=== PATIENT | male | born 1980 | race Caucasian/White ===

== ENCOUNTER → 2019-03-17 | Outpatient (CLI) | payer OTHER ==
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
== END | disposition home or self-care (01) ==
LOC: RADXRMAIN 09:24
PROVIDERS: ATTEND Family Medicine
DX: M54.2 Cervicalgia (principal)
CPT/HCPCS: 72050

== ENCOUNTER → 2019-03-25 | Outpatient (CLI) | payer OTHER ==
--- NOTE | 2019-03-25 08:16 | US ---
EXAMINATION TYPE: US kidneys/renal and bladder DATE OF EXAM: 03/25/2019 COMPARISON: NONE CLINICAL HISTORY: R10.9 Left flank pain. Left flank pain for 1 year EXAM MEASUREMENTS: Right Kidney: 11.5 x 4.3 x 3.9 cm Left Kidney: 11.0 x 5.6 x 4.9cm Right Kidney: no evidence of hydronephrosis Left Kidney: no evidence of hydronephrosis Bladder: appears wnl Bilateral Jets seen: yes There is no evidence for hydronephrosis at this point in time. No nephrolithiasis is seen. No brandon s are identified. The urinary bladder is anechoic. Bilateral ureteral jets are seen. IMPRESSION: Unremarkable renal ultrasound. No hydronephrosis or nephrolithiasis seen.
== END | disposition home or self-care (01) ==
LOC: RADUSWWP 07:07
PROVIDERS: ATTEND Family Medicine
DX: R10.9 Unspecified abdominal pain (principal)
CPT/HCPCS: 76770

== ENCOUNTER → 2019-04-25 | Outpatient (CLI) | payer OTHER ==
[2019-04-25 07:54] LABS: HCT 44.9 % (39.0-53.0); HGB 15.1 gm/dL (13.0-17.5); MCH 31.4 pg (25.0-35.0); MCHC 33.7 g/dL (31.0-37.0); MCV 93.1 fL (80.0-100.0); Mean Platelet Volume 7.6; Platelet Count 301 k/uL (150-450); RBC 4.82 m/uL (4.30-5.90); RDW 13.1 % (11.5-15.5); WBC 12.8 k/uL (3.8-10.6)
[2019-04-25 09:05] LABS: Erythrocyte Sedimentation Rate 2 mm/hr (0-15)
[2019-04-25 11:49] LABS: ALT 21 U/L (10-49); AST 18 U/L (14-35); African American GFR (CKD) 97.5 (60.0-200.0); Albumin/Globulin Ratio 2.45 (1.60-3.17); Alkaline Phosphatase 71 U/L (41-126); BUN/Creat Ratio 11.82 Ratio (12.00-20.00); C Reactive Protein <0.4 mg/dL (0.0-0.8); Calcium 10.2 mg/dL (8.7-10.3); Carbon Dioxide 27.4 mmol/L (21.6-31.8); Chloride 104 mmol/L (96-109); Glucose 117 mg/dL (70-110); Non-African American GFR(CKD) 84.1 (60.0-200.0); Potassium 5.1 mmol/L (3.5-5.5); Sodium 139 mmol/L (135-145); Total Bilirubin 0.6 mg/dL (0.3-1.2); Total Protein 6.9 g/dL (6.2-8.2)
[2019-04-25 12:43] LABS: Gliadin AB IgA, Deaminated NEGATIVE (NEGATIVE); Gliadin AB IgA, Unit <0.2 U/mL; Gliadin AB IgG, Deaminated NEGATIVE (NEGATIVE)
== END ==
LOC: LABWHC1 07:09
PROVIDERS: ATTEND Nurse Practitioner
DX: K52.9 Noninfective gastroenteritis and colitis, unspecified (principal)
CPT/HCPCS: 36415; 80053; 83516; 83630; 83993; 85027; 85652; 86140; 87045; 87046; 87324; 87328; 87329

== ENCOUNTER → 2021-03-08 | Outpatient (CLI) | payer OTHER ==
--- NOTE | 2021-03-08 16:10 | MR ---
EXAMINATION TYPE: MR tspine/lspine wo con DATE OF EXAM: 03/08/2021 COMPARISON: MRI 07/12/2012 lumbar spine HISTORY: Mid and lower back pain. TECHNIQUE: Multiplanar, multisequence imaging of the thoracic and lumbar spine is performed without I V contrast. FINDINGS: Thoracic spine MRI: Thoracic vertebral bodies show preserved height, there is a gentle spinal curvature, multilevel spond ylosis is present. Disc spaces are maintained. Thoracic cord signal is normal. There is no significan t spinal stenosis or foraminal encroachment. At T7-8 shows a small posterior disc bulge as does the T 11-12. Lung bases show no effusion. IMPRESSION: Slight spinal curvature, mild degenerative disc disease. Lumbar spine MRI: Sagittal images of the lumbar spine show vertebral body heights and alignment to appear satisfactory. The intervertebral discs demonstrate normal heights and hydration exception of L5-S1 with some loss of disc height and signal, posterior aspect of the disks show some increased signal on T2 weighted se quences suggesting an annular tear, findings similar to prior exam. The conus medullaris is normal i n position and signal. The bone marrow signal intensity is within normal limits, some minimal endpla te discogenic marrow signal change present superior endplate L4 anteriorly, there is mild spondylosis . There is no spinal canal stenosis, neural foraminal narrowing, or evidence of nerve root compromise. L5-S1 shows a small posterior disc bulge contacting the anterior thecal sac and possibly the proximal S1 nerve roots, axial image #3. L4-5 shows some facet arthropathy with hypertrophy of the ligamentum flavum. The left SI joint shows a small focus of fluid signal, axial image 2 which may be related to some deg enerative change. IMPRESSION: Mild degenerative disc disease as described, facet arthropathy.
== END | disposition home or self-care (01) ==
LOC: RADMRIMAIN 14:35
PROVIDERS: ATTEND Orthopaedic Surgery
DX: M51.34 Other intervertebral disc degeneration, thoracic region (principal); M47.816 Spondylosis without myelopathy or radiculopathy, lumbar region
CPT/HCPCS: 72146; 72148

== ENCOUNTER → 2021-03-20 | Outpatient (CLI) | payer OTHER ==
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
== END | disposition home or self-care (01) ==
LOC: RADMRIMAIN 19:12
PROVIDERS: ATTEND Orthopaedic Surgery
DX: M25.561 Pain in right knee (principal)

== ENCOUNTER → 2021-04-29 | Outpatient (CLI) | payer OTHER ==
[2021-04-29 19:44] LABS: Basophils # (A) 0.11 X 10*3/uL (0.00-0.10); Basophils % (A) 0.7 %; Eosinophils # (A) 0.55 X 10*3/uL (0.04-0.35); Eosinophils % (A) 3.7 %; HGB 14.1 g/dL (13.0-17.0); Lymphocytes # (A) 3.23 X 10*3/uL (0.90-5.00); Lymphocytes % (A) 21.8 %; MCH 31.9 pg (27.0-32.0); MCHC 33.6 g/dL (32.0-37.0); Mean Platelet Volume 10.5 fL (9.5-12.2); Monocytes # (A) 0.97 X 10*3/uL (0.20-1.00); Monocytes % (A) 6.5 %; Neutrophils # (A) 9.93 X 10*3/uL (1.80-7.70); Neutrophils % (A) 66.9 %; Platelet Count 267 X 10*3/uL (140-440); RBC 4.42 X 10*6/uL (4.40-5.60); RDW 13.6 % (11.5-14.5); WBC 14.85 X 10*3/uL (4.50-10.00)
[2021-04-29 21:44] LABS: Anion Gap 13.2 mmol/L (10.00-18.00); Carbon Dioxide 21.6 mmol/L (20.0-27.5); Potassium 5.1 mmol/L (3.5-5.5)
== END | disposition home or self-care (01) ==
LOC: LABWHC1 10:43
PROVIDERS: ATTEND Orthopaedic Surgery
DX: Z01.812 Encounter for preprocedural laboratory examination (principal); M23.91 Unspecified internal derangement of right knee
CPT/HCPCS: 36415; 80051; 85025

== ENCOUNTER 2021-05-23 08:59 | Day surgery (SDC) | payer OTHER ==
[2021-05-16 10:35] VITALS: BMI 28.2
--- NOTE | 2021-05-22 14:15 | HP ---
HISTORY AND PHYSICAL DATE OF SURGERY: 05/23/2021 Arron Pike is a 40-year-old gentleman seen with progressive right knee pain. We discussed options with him. He elected to proceed with right knee arthroscopy. Consent was obtained. PAST MEDICAL HISTORY: Hypertension, hyperlipidemia, hypothyroidism. PAST SURGICAL HISTORY: Hand surgery. DAILY MEDICATIONS: Atorvastatin, levothyroxine, omeprazole, lisinopril. ALLERGIES: DARVOCET, DEMEROL AND PENICILLIN. SOCIAL HISTORY: He smokes half pack of cigarettes daily. PHYSICAL EVALUATION OF THE RIGHT KNEE: His range of motion is zero to 130. There is a mild effusion. Tenderness along the medial joint line. Positive medial Sophia's. Ligaments are stable. Hip rotation is without pain. His distal neurovascular exam is intact. Right knee radiographs failed to reveal any significant osseous abnormality. MRI right knee revealed a medial meniscal tear and intraarticular effusion. IMPRESSION: 1. Internal derangement of right knee with medial meniscal tear. 2. Hypertension. 3. Hyperlipidemia. 4. Hypothyroidism. PLAN: Right knee arthroscopy with partial meniscectomy and debridement. MMODL / IJN: [id number] /
[~2021-05-23 08:59] MED LIST: DEXAMETHASONE SOD PHOSPHATE 4 MG/ML 1 ML VIAL IV ONE; HYDROmorphone 0.5 MG/0.5 ML SYRINGE IVP PRN; KETOROLAC 15 MG/ML 1 ML VIAL IVP SCH; LACTATED RINGERS 1,000 ML IV SCH; LIDOCAINE 1% (10MG/ML) FOR IV START INTRADERMA PRN; METOCLOPRAMIDE 5 MG/ML 2 ML VIAL IVP PRN; ONDANSETRON 4 MG/2 ML VIAL IVP ONE; VANCOMYCIN 1,500 MG in SODIUM CHLORIDE 0.9% 250 ML IVPB PRN
[2021-05-23] MEDS ORDERED: BUPIVACAINE (PF) 0.25% 30 ML VIAL INTRAARTIC ONE ×2 (10:59→11:33)
[2021-05-23] MEDS ORDERED: PROPOFOL 10 MG/ML 20 ML VIAL IV ONE (11:00)
[2021-05-23] MEDS ORDERED: HYDROmorphone (PF) 1 MG/ML ONE (11:00)
[2021-05-23] MEDS ORDERED: SUCCINYLCHOLINE CHLORIDE 100 MG/5 ML SYR IV ONE (11:00)
[2021-05-23] MEDS ORDERED: fentaNYL (PF) 50 MCG/ML 2 ML AMP ONE (11:00)
[2021-05-23] MEDS ORDERED: MIDAZOLAM 2 MG/2 ML VIAL ONE (11:00)
--- NOTE | 2021-05-23 11:46 | P.OP ---
Date of Procedure: 05/23/21 Preoperative Diagnosis: Internal derangement right knee Postoperative Diagnosis: 1. Tear lateral meniscus right knee 2. Reactive synovitis medial, lateral and suprapatellar compartments right knee Procedure(s) Performed: 1. Arthroscopic partial lateral meniscectomy right knee 2. Arthroscopic partial synovectomy medial, lateral and suprapatellar compartments right knee Anesthesia: ALEXIAA, local Surgeon: Walt Rodas Estimated Blood Loss (ml): 7 Pathology: none sent Condition: stable Disposition: PACU Indications for Procedure: 40-year-old patient seen with progressive right knee pain. After having treatment options discussed, he elected to proceed with arthroscopy. Operative Findings: See description of procedure Description of Procedure: Patient was taken to the operative suite. Patient underwent a general a nesthetic by the department of anesthesia. Patient was given preoperative antibiotics. The right lower extremity was placed in a well-padded arthroscopic leg booker. The right leg was prepped and draped in the normal sterile orthopedic fashion. A lateral parapatellar and suprapatellar incision was made. Trochars were inserted. Arthroscopy was initiated. Suprapatellar pouch revealed diffuse thick reactive synovitis. The patellofemoral joint appeared to articulate congruently. There was no significant chondromalacia present. The scope was guided into the medial gutter. No loose body or plica was identified. The scope was then guided into the medial compartment. A medial parapatellar incision was made. Trocar inserted followed by probe. The medial meniscus was probed and it was found to be stable. There was no chondromalacia present. There was some thick reactive synovitis anteriorly. I introduced a motorized shaver and performed a partial synovectomy. The shaver was removed. There appeared to be good decompression reactive synovitis. Scope and probe were then guided into the intercondylar notch. Cruciates were identified, probed and found to be stable. The scope and probe were then guided into lateral compartment. There was a radial tear posterior horn lateral meniscus. There was no chondromalacia present. There was some thick reactive synovitis anterior ly. I performed a partial lateral meniscectomy getting down to stable meniscal tissue. I performed a partial synovectomy decompressing the thick reactive synovitis anteriorly. Residual meniscus was probed and found to be stable. There was good decompression of synovitis. The scope was in guided back into the suprapatellar compartment. I introduced a motorized shaver into the suprapatellar compartment. I debrided some piecemeal fragments of meniscus that I encountered. I performed a partial synovectomy. The shaver was now removed. There was good decompression of synovitis. I took one more look on the entire knee, no residual debris. Instruments were now removed from the joint. The joint was infiltrated with .25% Marcaine. Steri-Strips were applied to the portal sites. Sterile dressings were applied. The patient was placed into a LUCIANO hose. No tourniquet was utilized. The patient was awakened, transferred to a bed and taken to recovery stable satisfactory condition.
[2021-05-23 11:51] VITALS: TEMP 96.9
[2021-05-23] MEDS ORDERED: KETOROLAC 15 MG/ML 1 ML VIAL IVP ONE (11:53)
[2021-05-23 12:31] VITALS: RESP 16
[2021-05-23 12:53] VITALS: BP 118/78; PULSE 76
== END 2021-05-23 12:58 | disposition home or self-care (01) ==
LOC: OR 08:59
PROVIDERS: ATTEND Orthopaedic Surgery
DX: S83.281A Other tear of lateral meniscus, current injury, right knee, initial encounter (principal); I10 Essential (primary) hypertension; E78.5 Hyperlipidemia, unspecified; E03.9 Hypothyroidism, unspecified
CPT/HCPCS: 29881; 29876; 84132; J2250; J1100; J2765; J0690; J2405; J3010; J1170; J1885; J0330; J2704

== ENCOUNTER → 2021-10-16 | Outpatient (CLI) | payer OTHER ==
--- NOTE | 2021-10-16 08:35 | MR ---
EXAMINATION TYPE: MR brain wo con DATE OF EXAM: 10/16/2021 7:06 AM COMPARISON: NONE HISTORY: Headache Multiplanar and multispin-echo imaging of the brain was performed . The ventricles, basal cisterns and sulci overlying the cerebral convexities are within normal limits. There is no evidence for midline shift or mass effect. Acute intracranial hemorrhage or extra-axial collection is not evident. The brain parenchyma reveals no abnormal increased signal. No acute edema is identified. The paranasal sinuses and mastoid air cells are well-aerated. IMPRESSION: Unremarkable MRI of the brain.
== END | disposition home or self-care (01) ==
LOC: RADMRIMAIN 06:21
PROVIDERS: ATTEND Family Medicine
DX: R51.9 Headache, unspecified (principal)
CPT/HCPCS: 70551

== ENCOUNTER → 2021-12-05 | Outpatient (CLI) | payer OTHER ==
[2021-12-05 09:26] VITALS: BP 124/86; PULSE 80; RESP 18; TEMP 98.5
--- NOTE | 2021-12-05 14:32 | P.PAINPG ---
Objective - Vital Signs Vital signs: Vital Signs Temp 98.5 F 12/05/21 09:17 Pulse 80 12/05/21 09:17 Resp 18 12/05/21 09:17 BP 124/86 12/05/21 09:17 Pulse Ox 96 12/05/21 09:17 FiO2 Intake & Output 12/04/21 12/05/21 12/05/21 18:59 06:59 18:59 Weight 101.151 kg PQRS Measure Charge Sheet Mode of Arrival: Ambulatory Comment: HISTORY OF PRESENT ILLNESS: 41 yr old male as a referral from Dr. Stark presents today with severe and chronic AMARAL secondary to L occipital neuralgia for evaluation. Pt states his pain level is currently at 1/10 in intensity but escalates as high as 10/10 with provocation such as hyperextension, stress or loud noises. States pain is intermittent, sharp and burning in character at the base of the neck with radiation towards the L eyebrow. Pain is alleviated with medications (Aleve OTC), laying supine and rest. PMH: HTN, COPD/ Asthma, IBS, GERD PSH: R ACL Repair (2021), R Hand Surgery x 5, Cerebral Hematoma Evacuation (1999) SH: 45 pack/ yr tobacco user, +Cannabis, No ETOH use. . FH: Mo- CAD/DM/Fibromyalgia. Fa-Cerebral Tumor/ at age 71 All: See list Meds: See list REVIEW OF ORGAN SYSTEMS: CONSTITUTIONAL: No fevers or chills. No recent weight loss. NEUROLOGICAL: + numbness and tingling along the distal extremities. No seizure disorders or headaches. MUSCULOSKELETAL: + pain PSYCHIATRIC: Denies current depression or suicidal thoughts. Physical Examinations : Constitutional : Cooperative , not in acute distress . Neurologic : Cranial nerve II to XII intact. No focal neurological deficits. Psychiatric : alert & oriented x 3. Matching mood & appropriate affect. Judgment & insight intact. Musculoskeletal : Cervical Spine +L GRACIE TTP Motor strength in the deltoid and biceps: Normal right side. Normal Left side Motor strength biceps and the wrist extensors: Normal right side . Normal left side Motor strength in the triceps muscle: Normal right side. Normal left side Deep tendon reflexes: Normal at the biceps. Normal at Brachioradialis. Normal at triceps Vertebral body tenderness to deep palpation over Cervical facet loading test: positive bilaterally Spurling test: positive bilaterally Neck distraction test: positive bilaterally Jagjit sign: positive bilaterally Lumbar spine Motor strength lower extremities ,thigh and legs 5/5 Right side , 5/5 Left side Deep tendon reflexes : Normal Knee Jerk. Normal Ankle Jerk Vertebral body tenderness over Lumbar facet Loading Test: positive R ight / positive Left Range of motion of the lumbar spine Flexion 30 degrees, extension 10 degrees Straight Leg Raise test: Left/ Right positive at degree Gavin test: positive right / positive left. Severe tenderness over the Sacroiliac joint on the Right / Left sides Gaenslen test: positive bilaterally Seated flexion test: positive bilaterally. Sacral spine : Severe tenderness over the Sacroiliac joint: right side / left side Range of motion: Flexion of the lumbar spine <60 degrees Range of motion: Extension of the lumbar spine <20 degrees Gaenslen's Test positive Bran's Test positive Gavin test: positive right side / left side Thigh Thrust Test Sacral Thrust Test Assessment/ Plan : L Occipital Neuralgia Recommendation of L GRACIE injection. May need a series, up to 3 within a 6 mo period, for optimal pain relief. Risks, benefits of procedure discussed and patient verbalized understanding. Denies aspirin or anti- coagulant use or medical history of diabetes. Protocol for discontinuation/ continuation of medications glenys procedure discussed. All questions answered. I have spent greater than 30 minutes on patient care today. Dr Whitlock was available by phone for the evaluation of this patient. The time was used to review the medical records including relevant urine studies and Prescription history (MAPs), review of the available imaging, evaluation and examination of the patient, coordination of care with the medical staff and if applicable referring physicians, as well as creation of the medical record - Pain Location Left Upper Neck Pharmacological Interventions: PRN Medication PQRS Narrative: Smoking Status Current every day smoker Blood Pressure 124/86 Pain Intensity [Left Upper 1 Neck] Scale Used Numeric (1 - 10) Hx Alcohol Use (MH) No Home Medications: Ambulatory Orders Albuterol Inhaler [Ventolin Hfa Inhaler] 1 - 2 puff INHALATION Q6HR PRN 09/13/15 Levothyroxine Sodium [Synthroid] 50 mcg PO QAM 09/13/15 Omeprazole 20 mg PO DAILY 09/13/15 Amitriptyline HCl [Elavil] 20 mg PO HS 05/16/21 Atorvastatin [Lipitor] 40 mg PO DAILY 05/16/21 Dicyclomine [Bentyl] 20 mg PO QID 05/16/21 lisinopriL [Zestril] 2.5 mg PO DAILY 05/16/21 HYDROcodone/APAP 5-325MG [[place] 5-325] 1 tab PO Q6HR PRN #21 tab 05/23/21 Controlled Substance Measures - Controlled Substance Measures Is patient prescribed a controlled substance at discharge?: No
== END ==
LOC: PNWHC3 08:54
PROVIDERS: ATTEND Specialist
DX: M54.81 Occipital neuralgia (principal); I10 Essential (primary) hypertension; J44.9 Chronic obstructive pulmonary disease, unspecified; F17.200 Nicotine dependence, unspecified, uncomplicated; Z88.0 Allergy status to penicillin; Z88.5 Allergy status to narcotic agent; Z88.8 Allergy status to other drugs, medicaments and biological substances
CPT/HCPCS: 99211

== ENCOUNTER 2022-01-16 05:56 | Day surgery (SDC) | payer OTHER ==
[2022-01-15 13:15] VITALS: BMI 28.8
[~2022-01-16 05:56] MED LIST changes: -DEXAMETHASONE SOD PHOSPHATE 4 MG/ML 1 ML VIAL IV ONE; -HYDROmorphone 0.5 MG/0.5 ML SYRINGE IVP PRN; -KETOROLAC 15 MG/ML 1 ML VIAL IVP SCH; -METOCLOPRAMIDE 5 MG/ML 2 ML VIAL IVP PRN; -ONDANSETRON 4 MG/2 ML VIAL IVP ONE; -VANCOMYCIN 1,500 MG in SODIUM CHLORIDE 0.9% 250 ML IVPB PRN
[2022-01-16 06:25] VITALS: TEMP 97.5
[2022-01-16] MEDS ORDERED: ROPIVACAINE 5 MG/ML 20 ML AMPULE ONE (07:01)
[2022-01-16] MEDS ORDERED: fentaNYL (PF) 50 MCG/ML 2 ML AMP ONE (07:01)
[2022-01-16] MEDS ORDERED: methylPREDNISolone ACETATE 40 MG/ML 1 ML VIAL ONE (07:01)
[2022-01-16] MEDS ORDERED: MIDAZOLAM 2 MG/2 ML VIAL ONE (07:01)
--- NOTE | 2022-01-16 07:09 | P.PCN ---
Date of Procedure: 01/16/22 Procedure(s) Performed: Preoperative diagnoses= 1- Greater occipital neuralgia. 2-cervicogenic headache Postoperative diagnoses= same as preoperative diagnosis. Procedure= left Greater occipital nerve block Anesthesia= moderate sedation with Versed 2 mg and fentanyl 50 micrograms Sedation start time : 701 . Sedation end time : 703 . Estimated blood loss=minimal. Procedure indication= the patient had a history of severe chronic neck pain ,and headache, diagnosed with occipital neuralgia exam was positive for severe tenderness over the occipital nerve bilaterally, she will be a good candidate occipital nerve block, patient failed conservative management Procedure description= the patient was seen and identified in the preoperative holding area, risks and benefits and alternative of the procedure and possible complications discussed with the patient, and he agreed with the preceding, patient signed the consent, an IV was started, and vital signs were monitored and were stable throughout the procedure, patient was placed in the sitting position or table and the neck area was prepped and draped with a sterile fashion, vital signs were closely monitored during the procedure, 25-gauge needle advanced 1 inch lateral to the occipital protuberance on the Left side, at the location of the Left occipital nerve , then after negative aspiration for heme and CSF and there was no paresthesia during the injection, 6 ml of Robivacaine 0.5% and 40 mg of Depo-Medrol injected after negative aspiration, the needle removed. Patient tolerated the procedure well without any complication, The patient returned to supine position after the back was cleaned and a Band- Aid applied, the patient transported to recovery room in stable condition and he was monitored for 30 minutes before he was discharged home and then patient was reexamined before going home and patient was discharged in stable condition and patient will follow up with the pain clinic in a few weeks.
[2022-01-16] MEDS ORDERED: LACTATED RINGERS 1,000 ML IV ONE (07:12)
[2022-01-16 07:17] VITALS: RESP 20
[2022-01-16 07:29] VITALS: BP 125/87; PULSE 74
== END 2022-01-16 07:44 ==
LOC: ORPAIN 05:56
PROVIDERS: ATTEND Specialist
DX: M54.81 Occipital neuralgia (principal); G44.86 Cervicogenic headache; M54.2 Cervicalgia; G89.29 Other chronic pain; Z91.030 Bee allergy status; Z98.890 Other specified postprocedural states
CPT/HCPCS: 64405; J2250; J1030; J3010; J2795

== ENCOUNTER → 2022-01-17 | Outpatient (CLI) | payer OTHER ==
--- NOTE | 2022-01-17 21:40 | MR ---
EXAMINATION TYPE: MR knee LT wo con DATE OF EXAM: 01/17/2022 COMPARISON: Outside left knee x-ray January 07, 2022 HISTORY: Left knee pain, locking, and swelling since 1998 per patient. TECHNIQUE: Multiplanar, multisequence imaging of the left knee is performed without IV contrast. FINDINGS: MEDIAL MENISCUS: Anterior and posterior horns are intact without tear. LATERAL MENISCUS: Anterior and posterior horns are intact without tear. CRUCIATE LIGAMENTS: The anterior and posterior cruciate ligaments are intact and unremarkable. COLLATERAL LIGAMENTS: The medial collateral ligament is intact and unremarkable. Biceps femoris remai ns intact. Iliotibial band and the lateral collateral ligament are completely torn for reference edith nal image 22 with proximal stump noted. EXTENSOR MECHANISM: Visualized quadriceps and patellar tendons are intact. EFFUSION: Small size suprapatellar joint effusion. POPLITEAL CYST: Tiny popliteal/banerjee cyst. TRICOMPARTMENT SPACES: Tricompartment joint spaces are maintained. No significant spurring is seen. CARTILAGE: Tricompartmental articular cartilage is preserved. BONE MARROW SIGNAL: No focal abnormal marrow signal is appreciated. OTHER: No additional significant abnormality is appreciated. 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
== END | disposition home or self-care (01) ==
LOC: RADMRIMAIN 19:48
PROVIDERS: ATTEND Orthopaedic Surgery
DX: S83.422A Sprain of lateral collateral ligament of left knee, initial encounter (principal); X58.XXXA Exposure to other specified factors, initial encounter

== ENCOUNTER → 2022-01-29 | Outpatient (CLI) | payer OTHER ==
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
== END | disposition home or self-care (01) ==
LOC: RADMRIMAIN 13:36
PROVIDERS: ATTEND Orthopaedic Surgery
DX: S33.0XXA Traumatic rupture of lumbar intervertebral disc, initial encounter (principal)
CPT/HCPCS: 72141; 72148

== ENCOUNTER → 2022-01-30 | Outpatient (CLI) | payer OTHER ==
[2022-01-30 09:17] VITALS: BP 127/86; PULSE 78; RESP 18; TEMP 98.4
--- NOTE | 2022-01-30 09:51 | P.PAINPG ---
PQRS Measure Charge Sheet Comment: A 41 yr old male w at side with a history of severe and chronic neck pain secondary to cervicogenic headache and occipital neuralgia presents today for evaluation s/p L G.O.N. injection. Pt states he experienced 0% pain relief x 2 wks s/p procedure. Pain level is currently at 3 /10 in intensity, constant, localized in the upper neck, dull/ achy in character w shooting towards the BL upper scalp. Pain is provoked as high as 10/10 by hyperextension. Pain is alleviated with meds (Aleve OTC), laying supine and rest. Interventional pain procedures completed include L GRACEI injection x1. Patient is currently on Aleve OTC Patient denies any side effects of the medication(s), denies excessive drowsine ss or sleepiness, denies suicidal ideation and reports that the current pain medication is helping to control the pain and improve activities of daily living. Patient denies any motor or sensory deficits. Patient denies any fever or night sweats, denies any change in the bowel movements or urination. Physical Examination: -Constitutional: Cooperative. Not in acute distress . - Neurologic: Cranial nerve II to XII intact. No focal neurological deficits. - Psychatric: Alert & oriented x 3. Matching mood & appropriate affect. Judgment and insight intact. - Musculoskeletal: Cervical spine: +BL C2-C3, C3-C4 TTP Muscle bulk/ tone/ strength in the bilateral upper extremities normal Vertebral body tenderness to palpation over Spurling test positive Distraction test positive Facet loading test positive Thoracic spine Muscle bulk / tone/ strength in the bilateral paraspinal muscles normal Vertebral body tender to palpation over Facet loading test positive Lumbar spine: Motor bulk/ tone/ strength lower extremities , thigh and legs : 5/5 Deep tendon reflexes : Normal Knee Jerk. Normal Ankle Jerk . Vertebral body tenderness to palpation over Lumbar Facet Loading Test positive Straight Leg Raise: positive at 30 degrees right side/ left side Gaenslen's Test positive Sacral spine : Severe tenderness over the Sacroiliac joint: right side / left side Range of motion: Flexion of the lumbar spine <60 degrees Range of motion: Extension of the lumbar spine <20 degrees Gaenslen's Test positive Bran's Test positive Gavin test: positive right side / left side Thigh Thrust Test Sacral Thrust Test Assessment and plan: Chronic neck pain secondary to cervicogenic headache and occipital neuralgia Recommendation of BL MBB C2-C3, C3-C4. May need a series of injections, up until RFA, for optimal pain relief. Risks, benefits of procedure discussed and pt verbalized understanding. Denies anticoagulant use or medical history of diabetes. All patient questions answered MAPS reviewed and it was appropriate. I have spent less than 30 minutes on patient care today. Dr Whitlock was available by phone for the evaluation of this patient. The time was used to review the medical records including relevant urine studies and Prescription history (MAPs), review of the available imaging, evaluation and examination of the patient, coordination of care with the medical staff and if applicable referring physicians, as well as creation of the medical record PQRS Narrative: Smoking Status Current every day smoker Hx Alcohol Use (MH) No Home Medications: Ambulatory Orders Albuterol Inhaler [Ventolin Hfa Inhaler] 1 - 2 puff INHALATION Q6HR PRN 09/13/15 Levothyroxine Sodium [Synthroid] 50 mcg PO QAM 09/13/15 Amitriptyline HCl [Elavil] 20 mg PO HS 05/16/21 Atorvastatin [Lipitor] 40 mg PO DAILY 05/16/21 Dicyclomine [Bentyl] 20 mg PO QID 05/16/21 lisinopriL [Zestril] 2.5 mg PO DAILY 05/16/21 Controlled Substance Measures - Controlled Substance Measures Is patient prescribed a controlled substance at discharge?: No
== END ==
LOC: PNWHC3 08:43
PROVIDERS: ATTEND Specialist
DX: M54.81 Occipital neuralgia (principal); G89.29 Other chronic pain; F17.200 Nicotine dependence, unspecified, uncomplicated; Z88.1 Allergy status to other antibiotic agents; Z88.5 Allergy status to narcotic agent; Z88.0 Allergy status to penicillin
CPT/HCPCS: 99211

== ENCOUNTER 2022-02-14 07:56 | Day surgery (SDC) | payer OTHER ==
[~2022-02-14 07:56] MED LIST changes: -LIDOCAINE 1% (10MG/ML) FOR IV START INTRADERMA PRN
[2022-02-14 08:36] VITALS: RESP 16; TEMP 97.6
[2022-02-14] MEDS ORDERED: fentaNYL (PF) 50 MCG/ML 2 ML AMP ONE (08:44)
[2022-02-14] MEDS ORDERED: MIDAZOLAM 2 MG/2 ML VIAL ONE (08:44)
[2022-02-14] MEDS ORDERED: DEXAMETHASONE SOD PHOSPHATE 10 MG/ML 1 ML VIAL ONE (08:44)
[2022-02-14] MEDS ORDERED: ROPIVACAINE 5 MG/ML 20 ML AMPULE ONE (08:44)
[2022-02-14] MEDS ORDERED: IV FLUID CONTINUATION 1,000 ML IV ONE (09:17)
[2022-02-14 09:33] VITALS: BP 112/75; PULSE 75
--- NOTE | 2022-02-14 09:43 | FL ---
EXAMINATION TYPE: FL guided pain mgmt statistic DATE OF EXAM: 02/14/2022 HISTORY: Fluoroscopy time 15 seconds of fluoroscopy provided. IMPRESSION: 1. Fluoroscopy time.
[2022-02-14] MEDS ORDERED: LACTATED RINGERS 1,000 ML IV SCH (09:59)
[2022-02-14] MEDS ORDERED: LIDOCAINE 1% (10MG/ML) FOR IV START INTRADERMA PRN (09:59)
--- NOTE | 2022-02-14 10:17 | P.PCN ---
Date of Procedure: 02/14/22 Description of Procedure: PREOPERATIVE DIAGNOSIS: Cervical spondylosis without myelopathy, and occipital neuralgia POSTOPERATIVE DIAGNOSIS: Cervical spondylosis without myelopathy, and occipital neuralgia PROCEDURE : Bilateral cervical C3 -C3, and C3-C4 medial branch block under fluoroscopic guidance. SURGEON: Jose Miller TEACHER PRIVATE: None ANESTHESIA: Local anesthesia , and IV sedation : Versed 2 mg, and fentanyl 100 g EBL: None Image: Fluoroscopic image saved to electronic medical records PROCEDURE INDICATION: The patient with neck pain returns here for diagnostic medial branch block, failed with the conservative therapy. PROCEDURE DESCRIPTION: The patient was seen and identified in the preoperative area. Risks, benefits, complications, and alternatives were discussed with the patient; the patient agreed to proceed with the procedure and signed the consent. Vital signs were stable. Standard ASA monitoring applied. Patient was taken to the OR and time out was completed. The patient was placed in the prone position on the procedure table and cervical area was prepped and draped in the usual sterile fashion. Critical pause was taken. Vital signs were closely monitored during the procedure. Using anteroposterior fluoroscopic with 15 cephalad tilt Waists of right side C2, C3, and C4 identified and marked with the sterile marker. Skin and subcutaneous tissue injected with a total of 3 mL of lidocaine 1% using a 27- gauge 1-1/2 inch needle. Using a 25-gauge 3-1/2 inch spinal needles 3. Each spinal needle entered to the corresponding waists. Using cross-table lateral fluoroscopy, the centroid of the trapezoid of C2, C3, and C4, . [place] were guided by fluoroscopy to the centroid of the trapezoid of C2, C3, and C4. After negative aspiration for blood and CSF, 0.5 mL of block solution injected at each level. The block solution containing 2 ml of 0.5% bupivacaine preservative free and 10 mg dexamethasone (3ml total mixture) . [place] were removed intact. Entire procedure repeated on the left side . [place] were withdrawn intact. Skin was cleansed and bandages were applied. COMPLICATIONS: None. COMMENTS: DISPOSITION/PLAN: The patient was placed in a supine position and transferred to the recovery area in a stable condition for observation and was discharged from the recovery room after meeting discharge criteria. Home discharge instructions given to the patient by the staff. The patient was reexamined prior to discharge. The patient will schedule a repeat procedure in 2-4 weeks.
== END 2022-02-14 09:57 | disposition home or self-care (01) ==
LOC: ORPAIN 07:56
DX: M47.812 Spondylosis without myelopathy or radiculopathy, cervical region (principal); M54.81 Occipital neuralgia; E78.5 Hyperlipidemia, unspecified; I48.91 Unspecified atrial fibrillation; I11.0 Hypertensive heart disease with heart failure; I50.9 Heart failure, unspecified; I71.40 Abdominal aortic aneurysm, without rupture, unspecified; I25.10 Atherosclerotic heart disease of native coronary artery without angina pectoris; F32.A Depression, unspecified; Z88.0 Allergy status to penicillin; Z88.5 Allergy status to narcotic agent; Z88.1 Allergy status to other antibiotic agents; Z88.8 Allergy status to other drugs, medicaments and biological substances; K21.9 Gastro-esophageal reflux disease without esophagitis; Z79.899 Other long term (current) drug therapy
CPT/HCPCS: 64491; 64490; J2250; J1100; J3010; J2795

== ENCOUNTER → 2022-03-06 | Outpatient (CLI) | payer OTHER ==
--- NOTE | 2022-03-06 09:25 | P.PAINPG ---
PQRS Measure Charge Sheet Comment: A 41 yr old male w at side with a history of severe and chronic neck pain x 23 yrs secondary to cervical degenerative disc diseases and spondylosis with facet arthropathy without myelopathy presents today for evaluation s/p BL MBB C2-C3, C3-C4. Pt states he experienced 100% pain relief x 5 days s/p procedure. Pain level is currently at 1/10 in intensity, constant, localized in the back of his head, dull/ achy/ sharp in character w shooting towards the top of his head towards his eyes. Pain is provoked as high as 10/10 by hyperextension. Pain is alleviated with medications (Aleve OTC), THC, heat, hot showers, cold compresses on eyes, sleeping in a dark room and rest. Interventional pain procedures completed include BL MBB C2-C4 Patient is currently on Aleve OTC Patient denies any side effects of the medication(s), denies excessive drowsiness or sleepiness, denies suicidal ideation and reports that the current pain medication is helping to control the pain and improve activities of daily living. Patient denies any motor or sensory deficits. Patient denies any fever or night sweats, denies any change in the bowel movements or urination. Physical Examination: -Constitutional: Cooperative. Not in acute distress . - Neurologic: Cranial nerve II to XII intact. No focal neurological defi cits. - Psychatric: Alert & oriented x 3. Matching mood & appropriate affect. Judgment and insight intact. - Musculoskeletal: Cervical spine: Muscle bulk/ tone/ strength in the bilateral upper extremities normal Vertebral body tenderness to palpation over Spurling test positive Distraction test positive Facet loading test positive w hyperextension over BL C2-C3, C4-C4. +Jump reflex over BL C2-C4 facets. Thoracic spine Muscle bulk / tone/ strength in the bilateral paraspinal muscles normal Vertebral body tender to palpation over Facet loading test positive Lumbar spine: Motor bulk/ tone/ strength lower extremities , thigh and legs : 5/5 Deep tendon reflexes : Normal Knee Jerk. Normal Ankle Jerk . Vertebral body tenderness to palpation over Lumbar Facet Loading Test positive Straight Leg Raise: positive at 30 degrees right side/ left side Gaenslen's Test positive Sacral spine : Severe tenderness over the Sacroiliac joint: right side / left side Range of motion: Flexion of the lumbar spine <60 degrees Range of motion: Extension of the lumbar spine <20 degrees Gaenslen's Test positive Bran's Test positive Gavin test: positive right side / left side Thigh Thrust Test Sacral Thrust Test Assessment and plan: Chronic neck pain secondary to cervical degenerative disc disease, spondylosis with facet arthropathy without myelopathy Recommendation of BL MBB C2-C3, C3-C4 #2. May need a series, up until RFA, for optimal pain relief. Risks, benefits of procedure discussed and pt verbalized understanding. Denies anticoagulant use or medical history of diabetes. All patient questions answered I have spent less than 30 minutes on patient care today. Dr Whitlock was available by phone for the evaluation of this patient. The time was used to review the medical records including relevant urine studies and Prescription history (MAPs), review of the available imaging, evaluation and examination of the patient, coordination of care with the medical staff and if applicable re [facility] physicians, as well as creation of the medical record PQRS Narrative: Smoking Status Current every day smoker Hx Alcohol Use (MH) No Home Medications: Ambulatory Orders Albuterol Inhaler [Ventolin Hfa Inhaler] 1 - 2 puff INHALATION Q6HR PRN 09/13/15 Levothyroxine Sodium [Synthroid] 50 mcg PO QAM 09/13/15 Amitriptyline HCl [Elavil] 20 mg PO HS 05/16/21 Atorvastatin [Lipitor] 40 mg PO DAILY 05/16/21 Dicyclomine [Bentyl] 20 mg PO QID 05/16/21 lisinopriL [Zestril] 2.5 mg PO DAILY 05/16/21 Controlled Substance Measures - Controlled Substance Measures Is patient prescribed a controlled substance at discharge?: No
[2022-03-06 09:32] VITALS: BP 135/86; PULSE 83; RESP 18; TEMP 98.1
== END | disposition home or self-care (01) ==
LOC: PNWHC3 08:26
PROVIDERS: ATTEND Specialist
DX: M47.892 Other spondylosis, cervical region (principal); M50.30 Other cervical disc degeneration, unspecified cervical region
CPT/HCPCS: 99211

== ENCOUNTER → 2022-03-25 | Outpatient (CLI) | payer OTHER ==
[2022-03-26 13:40] LABS: Honeybee Venom IgE Class CLASS 0
[2022-03-26 13:41] LABS: Paper Wasp IgE <0.10 kU/L (<0.10); Paper Wasp IgE Class CLASS 0; White-Faced Hornet IgE <0.10 kU/L (<0.10); White-Faced Hornet IgE Class CLASS 0; Yellow Hornet IgE <0.10 kU/L (<0.10); Yellow Hornet IgE Class CLASS 0; Yellow Jacket IgE Class CLASS 0
== END | disposition home or self-care (01) ==
LOC: LABWHC1 10:58
PROVIDERS: ATTEND Internal Medicine
DX: Z91.030 Bee allergy status (principal)
CPT/HCPCS: 36415; 86003

== ENCOUNTER → 2022-04-08 | Outpatient (CLI) | payer OTHER ==
[2022-04-08 18:31] LABS: Basophils # (A) 0.08 X 10*3/uL (0.00-0.10); Basophils % (A) 0.6 %; Eosinophils # (A) 0.39 X 10*3/uL (0.04-0.35); Eosinophils % (A) 2.8 %; HCT 39.4 % (39.6-50.0); HGB 13.6 g/dL (13.0-17.0); Immature Grans, Automated 0.3 %; Lymphocytes # (A) 3.41 X 10*3/uL (0.90-5.00); Lymphocytes % (A) 24.4 %; MCH 31.9 pg (27.0-32.0); MCHC 34.5 g/dL (32.0-37.0); MCV 92.5 fL (80.0-97.0); Mean Platelet Volume 10.4 fL (9.5-12.2); Monocytes # (A) 1.07 X 10*3/uL (0.20-1.00); Monocytes % (A) 7.6 %; NRBC Per 100 WBC 0 /100 WBCS (0.0-0.0); Neutrophils % (A) 64.3 %; Platelet Count 276 X 10*3/uL (140-440); RBC 4.26 X 10*6/uL (4.40-5.60); RDW 13.8 % (11.5-14.5); WBC 13.99 X 10*3/uL (4.50-10.00)
[2022-04-08 18:34] LABS: Carbon Dioxide 25.8 mmol/L (20.0-27.5); Potassium 4.5 mmol/L (3.5-5.5)
== END | disposition home or self-care (01) ==
LOC: LABPAT 10:55
PROVIDERS: ATTEND Orthopaedic Surgery
DX: Z01.812 Encounter for preprocedural laboratory examination (principal); M23.92 Unspecified internal derangement of left knee
CPT/HCPCS: 80051; 85025

== ENCOUNTER 2022-04-11 13:01 | Day surgery (SDC) | payer OTHER ==
[2022-04-09 11:08] VITALS: BMI 30.2
[~2022-04-11 13:01] MED LIST changes: +LIDOCAINE 1% (10MG/ML) FOR IV START INTRADERMA PRN
[2022-04-11 13:13] VITALS: TEMP 97.8
[2022-04-11] MEDS ORDERED: methylPREDNISolone ACETATE 40 MG/ML 1 ML VIAL ONE (13:29)
[2022-04-11] MEDS ORDERED: ROPIVACAINE 5 MG/ML 20 ML AMPULE ONE (13:29)
[2022-04-11] MEDS ORDERED: fentaNYL (PF) 50 MCG/ML 2 ML AMP ONE (13:29)
[2022-04-11] MEDS ORDERED: MIDAZOLAM 2 MG/2 ML VIAL ONE (13:29)
[2022-04-11] MEDS ORDERED: IV FLUID CONTINUATION 600 ML IV ONE (13:56)
[2022-04-11] MEDS ORDERED: LACTATED RINGERS 1,000 ML IV ONE (13:56)
--- NOTE | 2022-04-11 13:56 | P.PCN ---
Date of Procedure: 04/11/22 Procedure(s) Performed: PREOPERATIVE DIAGNOSIS: 1-Cervical Spondylosis with Facet Arthropathy.without myelopathy. 2-occipital neuralgia POSTOPERATIVE DIAGNOSIS: Same as preoperative diagnosis. PROCEDURES: Diagnostic bilateral C2 , C3, C4 medial branch blocks, with fluoroscopic guidance (fluoroscopy images available in radiology department ) ( to target the facet joint at bilateral C2-3 ,C3-4 ) # 2nd ANESTHESIA: Monitored anesthesia care as per anesthesia department . EBL: Minimal PROCEDURE INDICATION: The patient with neck pain secondary to cervical arthropathy unresponsive to more conservative treatments. PROCEDURE DESCRIPTION / TECHNIQUE: The patient was seen and identified in the preoperative area. Risks, benefits, complications, and alternatives were discussed with the patient, the patient agreed to proceed with the procedure and signed the consent. IV was started. Vital signs remained stable throughout the procedure. Patient was taken to the OR and time out was completed. The patient was placed in the prone position on the procedure table. A pillow was placed under the patients chest to increase the cervical interlaminar space. The cervical area was prepped and draped in the usual sterile fashion. Critical pause was taken. Vital signs were closely monitored during the procedure. Conscious sedation was used during the procedure to decrease patients anxiety. Using cross-table lateral fluoroscopy, the centroid of the trapezoid of right C2 ,C3, C4 , was identified, marked, and localized with 1% lidocaine 1 ml at each level for skin and Sub Q infiltrations . Subsequently, a 25 G 3 spinal needle was advanced guided by fluoroscopy to the centroid of the trapezoid of Right C2 , C3, C4 . [place] tip position was confirmed at the centroid of the trapezoids of Right C2 ,C3 , C4 ,with anteroposterior fluoroscopy. Subsequently, 1.5 ml of preservative-free Ropivacaine 0.5% mixed with Depo- Medrol 20 mg and half ml of the mixture was injected after negative aspiration for blood and CSF. [place] was then removed intact the same procedure was repeated at the left C2 ,C3 , C4 levels. COMPLICATIONS: No acute complications. DISPOSITION / PLANS: The patient was placed in a supine position and transferred to the recovery area in a stable condition for observation and was discharged from the recovery room after meeting discharge criteria. Home discharge instructions given to the patient by the staff. The patient was reexamined prior to discharge. The patient will schedule a follow up in the clinic in 2-4 weeks.
[2022-04-11 14:12] VITALS: BP 98/56; PULSE 78; RESP 18
--- NOTE | 2022-04-11 15:01 | FL ---
EXAMINATION TYPE: FL guided pain mgmt statistic DATE OF EXAM: 04/11/2022 CLINICAL HISTORY: Neck pain. TECHNIQUE: Fluoroscopy. COMPARISON: None. FINDINGS: Fluoroscopic guidance was provided during pain relief procedure performed by Dr. Whitlock . A total of 15 seconds of fluoroscopic time was utilized during the procedure and two spot images a re acquired. Images acquired shows needle localization at several levels in the cervical spine. IMPRESSION: As Above.
== END 2022-04-11 14:30 | disposition home or self-care (01) ==
LOC: ORPAIN 13:01
PROVIDERS: ATTEND Specialist
DX: M47.812 Spondylosis without myelopathy or radiculopathy, cervical region (principal); M54.81 Occipital neuralgia; I10 Essential (primary) hypertension; E78.5 Hyperlipidemia, unspecified; J44.9 Chronic obstructive pulmonary disease, unspecified; F17.210 Nicotine dependence, cigarettes, uncomplicated; K21.9 Gastro-esophageal reflux disease without esophagitis; E03.9 Hypothyroidism, unspecified; Z88.0 Allergy status to penicillin; Z88.5 Allergy status to narcotic agent; Z88.1 Allergy status to other antibiotic agents
CPT/HCPCS: 64490; 64491 ×2; J2250; J1030; J3010; J2795

== ENCOUNTER 2022-04-24 11:18 | Day surgery (SDC) | payer OTHER ==
--- NOTE | 2022-04-24 02:22 | HP ---
HISTORY AND PHYSICAL DATE OF SURGERY: 04/24/2022. HISTORY OF PRESENT ILLNESS: Arron Pike is a 41-year-old patient seen with progressive left knee pain. We discussed options for treatment. He elected to proceed with arthroscopy. Consent was obtained. PAST MEDICAL HISTORY: Hypertension, hyperlipidemia, hypothyroidism. PAST SURGICAL HISTORY: Hand surgery. DAILY MEDICATIONS: 1. Atorvastatin. 2. Levothyroxine. 3. Loratadine. 4. Aleve. 5. Losartan. ALLERGIES: Darvocet, Demerol, doxycycline, and penicillin. SOCIAL HISTORY: He smokes cigarettes. PHYSICAL EVALUATION OF THE LEFT KNEE: Range of motion is 0-125. He has a mild effusion. Tenderness along the medial joint line. Tenderness along the lateral joint line. Positive medial Sophia's. Positive lateral Sophia's. Ligaments stable. Hip rotation without pain. Distal neurovascular exam intact. RADIOGRAPHS: Radiographs of the left knee revealed an effusion. MRI left knee revealed an effusion, Farooq cyst, and ligament tear. IMPRESSION: 1. Internal derangement left knee with osteochondral tear. 2. Hypertension. 3. Hyperlipidemia. PLAN: Left knee arthroscopy with chondroplasty and debridement. MMODL / IJN: [id number] /
[~2022-04-24 11:18] MED LIST changes: +DEXAMETHASONE SOD PHOSPHATE 4 MG/ML 1 ML VIAL IV ONE; -LIDOCAINE 1% (10MG/ML) FOR IV START INTRADERMA PRN; +ONDANSETRON 4 MG/2 ML VIAL IVP ONE
[2022-04-24] MEDS ORDERED: BUPIVACAINE (PF) 0.25% 30 ML VIAL SQ ONE (13:13)
[2022-04-24] MEDS ORDERED: fentaNYL (PF) 50 MCG/ML 2 ML AMP ONE (13:15)
[2022-04-24] MEDS ORDERED: LIDOCAINE 2% INJ 20 MG/ML (2 ML VIAL) ONE (13:15)
[2022-04-24] MEDS ORDERED: PROPOFOL 10 MG/ML 20 ML VIAL IV ONE (13:15)
[2022-04-24] MEDS ORDERED: HYDROmorphone (PF) 1 MG/ML ONE (13:15)
[2022-04-24] MEDS ORDERED: MIDAZOLAM 2 MG/2 ML VIAL ONE (13:15)
[2022-04-24 13:59] VITALS: TEMP 97
[2022-04-24] MEDS: HYDROmorphone 0.5 MG/0.5 ML SYRINGE IVP PRN ×3 (14:00→14:45)
--- NOTE | 2022-04-24 14:00 | P.OP ---
Date of Procedure: 04/24/22 Preoperative Diagnosis: Internal derangement left knee Postoperative Diagnosis: 1. Tear lateral meniscus left knee 2. Reactive synovitis medial, lateral and suprapatellar compartments left knee Procedure(s) Performed: 1. Arthroscopic partial lateral meniscectomy left knee 2. Arthroscopic partial synovectomy medial, lateral and suprapatellar compartments left knee Anesthesia: COLT, local Surgeon: Walt Rodas Estimated Blood Loss (ml): 5 Pathology: none sent Condition: stable Disposition: PACU Indications for Procedure: 41-year-old patient seen with progressive left knee pain. After treatment options were discussed, he elected to proceed with arthroscopy. Operative Findings: see description of procedure Description of Procedure: Patient was taken to the operative suite. Patient underwent a general anesthe tic by the department of anesthesia. Patient was given preoperative antibiotics. The left lower extremity was placed in a well-padded arthroscopic leg booker. The left leg was prepped and draped in the normal sterile orthopedic fashion. A lateral parapatellar and suprapatellar incision was made. Trochars were inserted. Arthroscopy was initiated. Suprapatellar pouch revealed diffuse thick reactive synovitis. The patellofemoral joint appeared to articulate congruently. There was no significant chondromalacia present. The scope was guided into the medial gutter. No loose bodies or plica were identified. The scope was then guided into the medial compartment. A medial parapatellar incision was made. Trocar inserted followed by probe. The medial meniscus was probed and was found to be stable. There was some reactive synovitis anteriorly. There was no significant chondromalacia present. I performed a partial synovectomy. There was good decompression of synovitis. Scope and probe were then guided into the intercondylar notch. Cruciates were identified, probed and found to be stable. The scope and probe were then guided into lateral compartment. There was a radial tear posterior horn lateral meniscus. There was no significant chondral malacia present. There was some thick reactive synovitis anteriorly. I performed a partial synovectomy. The shaver was now removed. There was good decompression of the synovitis. The scope was in guided back into the suprapatellar compartment. I introduced a motorized shaver into the suprapatellar compartment. I performed a partial synovectomy. Shaver was removed. There was good decompression of the synovitis. I now took one more look around the entire knee, no residual debris. Instruments were now removed from the joint. The joint was infiltrated with .25% Marcaine. Steri-Strips were applied to the portal sites. Sterile dressings were applied. The patient was placed into a LUCIANO hose. No tourniquet was utilized. The patient was awakened, transferred to a bed and taken to recovery stable satisfactory condition.
[2022-04-24] MEDS ORDERED: HYDROcodone/APAP 5-325MG 1 EACH TAB ONE (15:04)
[2022-04-24] MEDS ORDERED: HYDROcodone/APAP 5-325MG 1 EACH TAB PO ONE (15:06)
[2022-04-24 15:42] VITALS: BP 128/77; PULSE 78; RESP 17
== END 2022-04-24 15:46 | disposition home or self-care (01) ==
LOC: OR 11:18
PROVIDERS: ATTEND Orthopaedic Surgery
DX: S83.282A Other tear of lateral meniscus, current injury, left knee, initial encounter (principal); M65.862 Other synovitis and tenosynovitis, left lower leg; I10 Essential (primary) hypertension; E78.5 Hyperlipidemia, unspecified; F17.210 Nicotine dependence, cigarettes, uncomplicated; E03.9 Hypothyroidism, unspecified; Z79.899 Other long term (current) drug therapy; Z88.0 Allergy status to penicillin; Z88.1 Allergy status to other antibiotic agents; Z88.5 Allergy status to narcotic agent; X58.XXXA Exposure to other specified factors, initial encounter
CPT/HCPCS: 29881; J2250; J1100; J0690; J2405; J3010; J1170 ×2; J2704; J2001

== ENCOUNTER → 2022-04-28 | Outpatient (CLI) | payer OTHER ==
[2022-04-28 09:08] VITALS: BP 137/87; PULSE 93; RESP 18; TEMP 98.5
--- NOTE | 2022-04-28 14:59 | P.PAINPG ---
PQRS Measure Charge Sheet Comment: A 41 yr old male w at side with a history of severe and chronic AMARAL pain secondary to cervical DDD, occipital neuralgia and cervicogenic AMARAL presents today for evaluation s/p BL facet block of the medial branches C2-3, C3-4 #2. Pt states he experienced 100 % pain relief x 10 days s/p procedure. Pain level is at 4 /10 in intensity, constant, localized in the upper neck, sharp/ shooting towards the top of the head. Pain is provoked by rotation, loud noises. Pain is alleviated with hot showers, ice, medications (Aleve), repositioning, reclining and rest. Interventional pain procedures completed include BL MBB C2-C4 x2 Patient is currently on Aleve OTC Patient denies any side effects of the medication(s), denies excessive drowsiness or sleepiness, denies suicidal ideation and reports that the current pain medication is helping to control the pain and improve activities of daily living. Patient denies any motor or sensory deficits. Patient denies any fever or night sweats, denies any change in the bowel movements or urination. Physical Examination: -Constitutional: Cooperative. Not in acute distress . - Neurologic: Cranial nerve II to XII intact. No focal neurological deficits. - Psychatric: Alert & oriented x 3. Matching mood & appropriate affect. Judgment and insight intact. - Musculoskeletal: Cervical spine: Muscle bulk/ tone/ strength in the bilateral upper extremities normal Vertebral body tenderness to palpation over BL C2-C3, C3-C4 facets Spurling test positive Distraction test positive Facet loading test positive Thoracic spine Muscle bulk / tone/ strength in the bilateral paraspinal muscles normal Vertebral body tender to palpation over Facet loading test positive Lumbar spine: Motor bulk/ tone/ strength lower extremities , thigh and legs : 5/5 Deep tendon reflexes : Normal Knee Jerk. Normal Ankle Jerk . Vertebral body tenderness to palpation over Lumbar Facet Loading Test positive Straight Leg Raise: positive at 30 degrees right side/ left side Gaenslen's Test positive Sacral spine : Severe tenderness over the Sacroiliac joint: right side / left side Range of motion: Flexion of the lumbar spine <60 degrees Range of motion: Extension of the lumbar spine <20 degrees Gaenslen's Test positive Gavin test: positive right side / left side Thigh Thrust Test Sacral Thrust Test Assessment and plan: Chronic AMARAL pain secondary to cervical DDD, occipital neuralgia and cervicogenic AMARAL Recommendation of BL RFA C2-C3, C3-C4. Pt exhibited substantial pain relief w prior facet block of the medial branches. Risks, benefits of procedure discussed and pt verbalized understanding. Admits to anticoagulant use or medical history of diabetes. Protocol for discontinuation/ continuation of medications glenys procedure discussed. All patient questions answered I have spent less than 30 minutes on patient care today. Dr Wihtlock was available by phone for the evaluation of this patient. The time was used to review the medical records including relevant urine studies and Prescription history (MAPs), review of the available imaging, evaluation and examination of the patient, coordination of care with the medical staff and if applicable referring physicians, as well as creation of the medical record PQRS Narrative: Smoking Status Current every day smoker Hx Alcohol Use (MH) No Home Medications: Ambulatory Orders Albuterol Inhaler [Ventolin Hfa Inhaler] 1 - 2 puff INHALATION Q6HR PRN 09/13/15 Amitriptyline HCl [Elavil] 20 mg PO HS 05/16/21 Atorvastatin [Lipitor] 40 mg PO DAILY 05/16/21 Dicyclomine [Bentyl] 20 mg PO QID 05/16/21 Levothyroxine Sodium [Levoxyl] 125 mcg PO DAILY 04/23/22 Losartan Potassium [Cozaar] 25 mg PO DAILY 04/23/22 Pantoprazole Sodium 40 mg PO DAILY 04/23/22 HYDROcodone/APAP 5-325MG [[place] 5-325] 1 tab PO Q6HR PRN #15 tab 04/24/22 Controlled Substance Measures - Controlled Substance Measures Is patient prescribed a controlled substance at discharge?: No
== END ==
LOC: PNWHC3 08:14
PROVIDERS: ATTEND Specialist
DX: M54.81 Occipital neuralgia (principal); G89.29 Other chronic pain; G44.86 Cervicogenic headache; E11.9 Type 2 diabetes mellitus without complications; M50.30 Other cervical disc degeneration, unspecified cervical region; F17.200 Nicotine dependence, unspecified, uncomplicated; Z88.0 Allergy status to penicillin; Z88.1 Allergy status to other antibiotic agents; Z88.5 Allergy status to narcotic agent
CPT/HCPCS: 99211

== ENCOUNTER → 2022-10-11 | Outpatient (CLI) | payer OTHER ==
--- NOTE | 2022-10-11 08:45 | CT ---
EXAMINATION TYPE: CT chest wo con DATE OF EXAM: 10/11/2022 COMPARISON: None HISTORY: Shortness of breath, smoker X [address] DLP: 534.[address] of the chest was performed with lung and mediastinal window settings submitted. The la ck of contrast limits evaluation of the vascular, mediastinal and parenchymal structures including th e upper abdomen. LUNGS: The lungs are clear and free of infiltrate. No atelectasis. No pulmonary nodule or mass is de tected. No pleural effusion. No CT evidence of interstitial lung disease. MEDIASTINUM/JARVIS: Thoracic aorta is of normal caliber with limited evaluation given lack of contrast . The heart is not enlarged. No evidence for mediastinal mass. No lymph nodes greater than 1cm. UPPER ABDOMEN: No significant abnormality is seen. OTHER: No significant other abnormality. IMPRESSION: 1. No significant abnormality
== END | disposition home or self-care (01) ==
LOC: RADCTMAIN 07:55
PROVIDERS: ATTEND Internal Medicine
DX: R06.02 Shortness of breath (principal)
CPT/HCPCS: 71250

== ENCOUNTER → 2023-06-22 | Outpatient (CLI) | payer OTHER ==
[2023-06-22 11:29] LABS: Luteinizing Hormone 2.6 mIU/mL; Prolactin 8.5 ng/mL (2.100-17.000)
== END | disposition home or self-care (01) ==
LOC: LABWHC1 08:14
PROVIDERS: ATTEND Urology
DX: N52.9 Male erectile dysfunction, unspecified (principal); E29.1 Testicular hypofunction
CPT/HCPCS: 36415; 83001; 83002; 84146; 84403; 84443

== ENCOUNTER → 2023-09-07 | Outpatient (CLI) | payer OTHER ==
--- NOTE | 2023-09-07 08:40 | XR ---
EXAMINATION TYPE: XR chest 2V DATE OF EXAM: 09/07/2023 COMPARISON: 04/18/2022 TECHNIQUE: PA and lateral views submitted. HISTORY: Cough FINDINGS: The lungs are clear and there is no pneumothorax, pleural effusion, or focal pneumonia. Heart size normal and no overt failure. Osseous structures demonstrate hypertrophic and degenerative changes of the spine. IMPRESSION: 1. No acute process.
[2023-09-07 10:32] LABS: Appearance,Urine Clear (Clear); Bilirubin,Urine Negative (Negative); Blood,Urine Negative (Negative); Color,Urine Yellow (Yellow); Ketones,Urine Trace (Negative); Nitrite,Urine Negative (Negative); PH, Urine 5.5; Specific Gravity,Urine 1.019 (1.001-1.030); Urobilinogen,Urine 0.2 E.U./DL
[2023-09-07 10:36] LABS: Microalbumin Creatinine Ratio <6 mg/g Cr (0-30)
[2023-09-07 10:41] LABS: Basophils # (A) 0.11 X 10*3/uL (0.00-0.10); Basophils % (A) 1.1 %; Eosinophils # (A) 0.43 X 10*3/uL (0.04-0.35); Eosinophils % (A) 4.2 %; HCT 40.7 % (39.6-50.0); Lymphocytes # (A) 2.79 X 10*3/uL (0.90-5.00); MCH 31.3 pg (27.0-32.0); MCHC 34.4 g/dL (32.0-37.0); MCV 91.1 FL (80.0-97.0); Mean Platelet Volume 10.5 FL (9.5-12.2); Monocytes # (A) 0.88 X 10*3/uL (0.20-1.00); Monocytes % (A) 8.5 %; NRBC Per 100 WBC 0 X 10*3/uL (0.00-0.01); Neutrophils % (A) 58.9 %; Platelet Count 270 X 10*3/uL (140-440); RBC 4.47 X 10*6/uL (4.40-5.60); RDW 13.7 % (11.5-14.5); WBC 10.34 X 10*3/uL (4.50-10.00)
[2023-09-07 10:55] LABS: % Iron Saturation 19.01 (15.00-50.00); ALT 28 U/L (10-49); AST 22 U/L (14-35); Albumin 4.5 g/dL (3.8-4.9); Albumin/Globulin Ratio 1.96 Ratio (1.60-3.17); Alkaline Phosphatase 89 U/L (41-126); BUN/Creat Ratio 11.75 Ratio (12.00-20.00); Blood Urea Nitrogen 14.1 mg/dL (9.0-27.0); C Reactive Protein <0.30 mg/dL (0.00-0.80); Calcium 9.8 mg/dL (8.7-10.3); Carbon Dioxide 22.2 mmol/L (21.6-31.8); Chloride 106 mmol/L (96-109); Chol/HDL Ratio 3.53 Ratio; Creatine Kinase 91 U/L (35-257); Ferritin 55.4 ng/mL (22.0-322.0); Globulin 2.3 g/dL (1.6-3.3); Glucose 110 mg/dL (70-110); Iron 77 UG/DL (65-175); Phosphorus 2.8 mg/dL (2.4-5.1); Potassium 4.8 mmol/L (3.5-5.5); Sodium 139 mmol/L (135-145); Total Bilirubin 0.4 mg/dL (0.3-1.2); Total Iron Binding Capacity 405 UG/DL (228-460); Total Protein 6.8 g/dL (6.2-8.2)
[2023-09-07 11:52] LABS: Erythrocyte Sedimentation Rate 3 mm/Hr (0-15)
[2023-09-07 12:26] LABS: Anti-DNA, DS unit <1.0 IU/mL; DNA Double-Stranded Negative (Negative)
[2023-09-07 17:04] LABS: Thyroid Peroxidase Antibodies 1035 U/mL (0.0-33.0)
== END | disposition home or self-care (01) ==
LOC: LABWHC1 07:33
PROVIDERS: ATTEND Internal Medicine
DX: I10 Essential (primary) hypertension (principal); D64.9 Anemia, unspecified; N40.0 Benign prostatic hyperplasia without lower urinary tract symptoms; J44.9 Chronic obstructive pulmonary disease, unspecified; K75.9 Inflammatory liver disease, unspecified; M10.9 Gout, unspecified; M81.0 Age-related osteoporosis without current pathological fracture; E87.8 Other disorders of electrolyte and fluid balance, not elsewhere classified; E78.5 Hyperlipidemia, unspecified; E11.65 Type 2 diabetes mellitus with hyperglycemia; E03.9 Hypothyroidism, unspecified; E66.9 Obesity, unspecified; E55.9 Vitamin D deficiency, unspecified; R05.9 Cough, unspecified; R80.9 Proteinuria, unspecified
CPT/HCPCS: 36415; 71046; 80053; 80061; 81003; 82043; 82306; 82550; 82570; 82728; 83036; 83540; 83550; 83735; 84100; 84153; 84432; 84439; 84443; 84550; 85025; 85652; 86038; 86140; 86225; 86376; 87086

== ENCOUNTER → 2023-10-16 | Outpatient (CLI) | payer OTHER ==
--- NOTE | 2023-10-16 13:07 | XR ---
EXAMINATION TYPE: XR ankle complete LT DATE OF EXAM: 10/16/2023 12:20 PM CLINICAL INDICATION:Male, 43 years old with history of I10 ESSENTIAL (PRIMARY) HYPERTENSION; PHH COMPARISON: None TECHNIQUE: XR ankle complete LT; ankle is imaged in frontal, lateral and oblique projections. FINDINGS: There is no evidence of acute osseous pathology. No evidence of subluxation or dislocation. Kager's fat pad is intact. No radiopaque foreign bodies are identified. IMPRESSION: 1. No evidence of acute fracture. 2. No acute/ chronic process identified to explain the patient's pain
== END | disposition home or self-care (01) ==
LOC: RADXRMAIN 12:06
PROVIDERS: ATTEND Family Medicine
DX: I10 Essential (primary) hypertension (principal)

== ENCOUNTER → 2024-10-28 | Outpatient (CLI) | payer OTHER ==
[2024-10-28 15:47] LABS: Basophils # (A) 0.11 X 10*3/uL (0.00-0.10); Basophils % (A) 0.7 %; Eosinophils # (A) 0.58 X 10*3/uL (0.04-0.35); Eosinophils % (A) 3.9 %; HCT 40.3 % (39.6-50.0); HGB 13.6 g/dL (13.0-17.0); Lymphocytes # (A) 3.39 X 10*3/uL (0.90-5.00); Lymphocytes % (A) 22.7 %; MCH 30.8 pg (27.0-32.0); MCHC 33.7 g/dL (32.0-37.0); MCV 91.2 FL (80.0-97.0); Mean Platelet Volume 10.1 FL (9.5-12.2); NRBC Per 100 WBC 0 X 10*3/uL (0.00-0.01); Neutrophils # (A) 9.57 X 10*3/uL (1.80-7.70); Neutrophils % (A) 64.2 %; Platelet Count 274 X 10*3/uL (140-440); RBC 4.42 X 10*6/uL (4.40-5.60); RDW 13.5 % (11.5-14.5); WBC 14.92 X 10*3/uL (4.50-10.00)
[2024-10-28 16:02] LABS: Anion Gap 11.2 mmol/L (4.00-12.00); Carbon Dioxide 23.8 mmol/L (21.6-31.8); Potassium 4.6 mmol/L (3.5-5.5)
== END | disposition home or self-care (01) ==
LOC: LABWHC1 10:27
PROVIDERS: ATTEND Orthopaedic Surgery
DX: Z01.812 Encounter for preprocedural laboratory examination (principal); M23.92 Unspecified internal derangement of left knee
CPT/HCPCS: 36415; 80051; 85025

== ENCOUNTER 2024-11-24 10:35 | Day surgery (SDC) | payer OTHER ==
[2024-11-22 13:07] VITALS: BMI 30.9
--- NOTE | 2024-11-23 15:48 | HP ---
HISTORY AND PHYSICAL ANTICIPATED DATE OF SURGERY: 11/24/2024. HISTORY OF PRESENT ILLNESS: Arron Pike is a 44-year-old gentleman, seen with progressive left knee pain. We discussed options. Postoperatively, he elected to proceed with left knee arthroscopy. Consents obtained. PAST MEDICAL HISTORY: Hypertension, hyperlipidemia, hypothyroidism. PAST SURGICAL HISTORY: Knee arthroscopy. DAILY MEDICATIONS: 1. Atorvastatin. 2. Amitriptyline. 3. Levothyroxine. 4. Aleve. 5. Losartan. ALLERGIES: Darvocet, Demerol, doxycycline. SOCIAL HISTORY: Noncontributory. PHYSICAL EVALUATION OF THE LEFT KNEE: His range of motion is 0 to 130 degrees. Mild effusion. Tenderness, medial joint line. Positive medial Sophia's. Ligaments stable. Hip rotation without pain. Distal neurovascular exam is intact. IMAGING STUDIES: Radiographs of the left knee revealed mild osteoarthritis. MRI of the left knee complex medial meniscal tear. IMPRESSION: 1. Internal derangement of left knee medial meniscal tear. 2. Hypertension. 3. Hyperlipidemia. 4. Hypothyroidism. PLAN: Left knee arthroscopy with partial medial meniscectomy and debridement. MMODL / IJN: [id number] /
[~2024-11-24 10:35] MED LIST changes: -DEXAMETHASONE SOD PHOSPHATE 4 MG/ML 1 ML VIAL IV ONE; -LACTATED RINGERS 1,000 ML IV SCH; -ONDANSETRON 4 MG/2 ML VIAL IVP ONE; +fentaNYL (PF) 50 MCG/ML 2 ML AMP IV PRN
[2024-11-24] MEDS: IV FLUID CONTINUATION 1,000 ML IV ONE (11:09)
[2024-11-24 11:47] LABS: Glucose,Whole Blood 102 mg/dL (70-110)
[2024-11-24] MEDS: LACTATED RINGERS 1,000 ML IV SCH (11:50)
[2024-11-24] MEDS: ONDANSETRON 4 MG/2 ML VIAL IVP ONE (11:50)
[2024-11-24] MEDS: SCOPOLAMINE 1 MG/72 HR PATCH TRANSDERM ONE (11:51)
[2024-11-24] MEDS: DEXAMETHASONE SOD PHOSPHATE 4 MG/ML 1 ML VIAL IV ONE (11:51)
[2024-11-24] MEDS ORDERED: PROPOFOL 10 MG/ML 20 ML VIAL IV ONE (12:24)
[2024-11-24] MEDS ORDERED: LIDOCAINE 1% INJ 10MG/ML (20 ML MDV) ONE (12:24)
[2024-11-24] MEDS ORDERED: MIDAZOLAM 2 MG/2 ML VIAL ONE (12:24)
[2024-11-24] MEDS ORDERED: fentaNYL (PF) 50 MCG/ML 2 ML AMP ONE (12:24)
[2024-11-24] MEDS ORDERED: ALBUTEROL HFA INHALER INHALATION ONE (12:24)
[2024-11-24] MEDS ORDERED: SUCCINYLCHOLINE CHLORIDE 200 MG/10 ML VIAL IV ONE (12:24)
[2024-11-24] MEDS ORDERED: KETOROLAC 15 MG/ML 1 ML VIAL ONE (12:24)
[2024-11-24] MEDS ORDERED: HYDROmorphone (PF) 1 MG/ML ONE (12:24)
[2024-11-24] MEDS: BUPIVACAINE (PF) 0.25% 30 ML VIAL MISCELLANE ONE ×2 (12:35→13:03)
--- NOTE | 2024-11-24 13:14 | P.OP ---
Date of Procedure: 11/24/24 Preoperative Diagnosis: Internal derangement left knee Postoperative Diagnosis: 1. Tear medial and lateral meniscus left knee 2. Reactive synovitis medial, lateral and suprapatellar compartments left knee Procedure(s) Performed: 1. Arthroscopic partial medial and lateral meniscectomy left knee 2. Arthroscopic partial synovectomy medial, lateral and suprapatellar compartments left knee Anesthesia: GETA, local Surgeon: Walt Rodas Estimated Blood Loss (ml): 5 Pathology: none sent Condition: stable Disposition: PACU Indications for Procedure: 44-year-old gentleman seen with progressive left knee pain. After having treatment options discussed, he elected to proceed with arthroscopy. Operative Findings: See description of procedure Description of Procedure: Patient was taken to the operative suite. Patient underwent a general anesthetic by the department of anesthesia. Patient was given preoperative antibiotics. The left lower extremity was placed in a well-padded arthroscopic leg booker. The left leg was prepped and draped in the normal sterile orthopedic fashion. A lateral parapatellar and suprapatellar incision was made. Trochars were inserted. Arthroscopy was initiated. Suprapatellar pouch r evealed diffuse thick reactive synovitis. The patellofemoral joint appeared appeared to articulate congruently. There was mild grade I chondromalacia involving the patella without tears. The scope was guided into the medial gutter. No loose bodies or plica were identified. The scope was then guided into the medial compartment. A medial parapatellar incision was made. Trocar inserted followed by probe. There was a radial tear posterior horn medial meniscus. There was no significant chondromalacia present. There was some thick reactive synovitis anteriorly. I performed a partial medial meniscectomy getting down to stable meniscal tissue. I performed a partial synovectomy decompressing the reactive synovitis. The residual meniscus was probed and was found to be stable. There was good decompression of the synovitis. Scope and probe were then guided into the intercondylar notch. Cruciates were identified, probed and found to be stable. The scope and probe were then guided into lateral compartment. There was a radial tear posterior horn lateral meniscus. There was no chondromalacia present lateral compartment. There was some thick reactive cellulitis anteriorly. I performed a partial lateral meniscectomy getting on the stable meniscal tissue. I performed a partial synovectomy decompressing the reactive synovitis. The residual meniscus was probed and was found to be stable. There was good decompression of the synovitis. The scope was in guided back into the suprapatellar compartment. I had used a motorized shaver into the suprasellar compartment. I performed a partial synovectomy. The shaver was now removed. I now took longer look around the entire knee, no residual debris. Instruments were now removed from the joint. The joint was infiltrated with .25% Marcaine. Steri-Strips were applied to the portal sites. Sterile dressings were applied. The patient was placed into a LUCIANO hose. No tourniquet was utilized. The patient was awakened, transferred to a bed and taken to recovery stable satisfactory condition.
[2024-11-24 13:15] VITALS: TEMP 97
[2024-11-24] MEDS: HYDROmorphone 0.5 MG/0.5 ML SYRINGE IVP STA (13:25)
[2024-11-24 14:26] VITALS: BP 120/83; PULSE 88; RESP 18
== END 2024-11-24 14:34 | disposition home or self-care (01) ==
LOC: OR 10:35
PROVIDERS: ATTEND Orthopaedic Surgery
DX: M23.92 Unspecified internal derangement of left knee (principal); S83.242A Other tear of medial meniscus, current injury, left knee, initial encounter; S83.282A Other tear of lateral meniscus, current injury, left knee, initial encounter; M65.962 Unspecified synovitis and tenosynovitis, left lower leg; E03.9 Hypothyroidism, unspecified; E78.5 Hyperlipidemia, unspecified; I10 Essential (primary) hypertension; Z88.1 Allergy status to other antibiotic agents; Z88.5 Allergy status to narcotic agent
CPT/HCPCS: 29880; J2250; J0330; J1100; J0690; J2405; J2003; J3010; J1171 ×2; J1885; J2704; J0665